=== PATIENT | male | born 2000 | race Caucasian/White ===

== ENCOUNTER 2025-06-20 10:39 | Emergency (ER) | payer SELFPAY ==
[~2025-06-20] VITALS: Ht 175.3 cm; Wt 102.0 kg
[2025-06-20 10:48] VITALS: O2SAT 99
[2025-06-20 11:24] LABS: CLARITY URINE CLEAR (CLEAR); COLOR URINE YELLOW (YELLOW); GLUCOSE URINE NEGATIVE (NEGATIVE); KETONES URINE TRACE (NEGATIVE); LEUKOCYTE ESTERASE URINE NEGATIVE (NEGATIVE); NITRITE URINE NEGATIVE (NEGATIVE); OCCULT BLOOD URINE NEGATIVE (NEGATIVE); PH URINE 6.0 (4.5-8.0); PROTEIN URINE NEGATIVE (NEGATIVE); SPECIFIC GRAVITY URINE 1.025 (1.005-1.030); UROBILINOGEN URINE 0.2 E.U./dL (0.2-1.0)
[2025-06-20 11:29] LABS: HEMATOCRIT. 48.2 % (42.0-52.0); HEMOGLOBIN. 15.9 g/dL (14.0-18.0); MEAN PLATELET VOLUME 7.1 fl (7.4-10.4); PLATELET 322 x1000/uL (130-400); RED BLOOD CELL COUNT 5.64 mill/uL (4.7-6.1); RED CELL DISTRIBUTION WIDTH 13.0 % (11.6-14.6)
[2025-06-20] MEDS: ONDANSETRON 4MG ODT PO ONE (11:31)
[2025-06-20 11:44] LABS: CREATININE 1.0 mg/dL (0.6-1.3)
[2025-06-20 11:45] LABS: ETHANOL BLOOD < 10 mg/dL (<10); UREA NITROGEN BLOOD 8 mg/dL (9-23)
[2025-06-20 11:46] LABS: ASPARTATE AMINOTRANSFERASE 49 IU/L (<34)
[2025-06-20 11:47] LABS: BILIRUBIN DIRECT 0.2 mg/dL (<=3.0); BILIRUBIN TOTAL 0.7 mg/dL (0.1-1.0); PROTEIN TOTAL 8.3 g/dL (6.0-8.3)
[2025-06-20 12:02] LABS: BAND% 8.0 % (1.0-6.0); EOSINOPHILS % MANUAL 4.0 % (0.0-5.0); LYMPHOCYTES % MANUAL 6.0 % (20.0-50.0); MONOCYTES % MANUAL 10.0 % (2.0-8.0); NEUTROPHILS % MANUAL 72.0 % (45.0-75.0); PLATELET ESTIMATE NORMAL
[2025-06-20 12:38] LABS: *AMPHETAMINES SCREEN URINE NEGATIVE (NEGATIVE); *BARBITURATES SCREEN URINE NEGATIVE (NEGATIVE); *BENZODIAZEPINES SCREEN URINE NEGATIVE (NEGATIVE); *COCAINE SCREEN URINE NEGATIVE (NEGATIVE)
[2025-06-20 12:39] LABS: CANNABINOID URINE SCREEN NEGATIVE (NEGATIVE); ECSTASY MDMA SCREEN URINE NEGATIVE (NEGATIVE); METHADONE URINE SCREEN NEGATIVE (NEGATIVE); OPIATES URINE SCREEN NEGATIVE (NEGATIVE); PHENCYCLIDINE URINE SCREEN NEGATIVE (NEGATIVE)
[2025-06-20] MEDS ORDERED: ONDA-239 PO (13:16)
[2025-06-20] MEDS ORDERED: SUCR1TAB MT (13:16)
[2025-06-20 13:47] VITALS: BP 120/78; PULSE 75; RESP 18; TEMP 37.1; O2SAT 100
== END 2025-06-20 13:49 | disposition home or self-care (01) ==
LOC: ER 10:39
DX: R11.2 Nausea with vomiting, unspecified (principal); Z79.899 Other long term (current) drug therapy
CPT/HCPCS: 80076; 80305; 80048; 81003; 80320; 83690; 83735; 85025; 36415; 74176; 99284; Q0162; G0480